=== PATIENT | female | born 1990 | race Caucasian/White ===

== ENCOUNTER 2020-03-20 11:08 | Emergency (ER) | payer MEDICAID ==
[2020-03-20] MEDS ORDERED: DIPH/PERTUSS(ACELL)/TETANUS VAC/PF 0.5 ML SYR (>=10YO) IM ONE (11:29)
[2020-03-20] MEDS ORDERED: AMOXICILLIN TR/POT CLAVULANATE 875-125 MG TAB PO ONE (11:33)
--- NOTE | 2020-03-20 11:37 | ER Document Report ---
ED Extremity Problem, Lower - General Chief Complaint: Foot Injury Stated Complaint: STEPPED ON GIL NAIL (LEFT FOOT) Time Seen by Provider: 03/20/20 11:26 Notes: CHIEF COMPLAINT: Plantar puncture wound left foot HPI: 29-year-old female presenting for plantar puncture wound left foot under the fourth and fifth toes. Stepped on a nail in a wood shed through a [employer] rubber soled shoe. This occurred yesterday. She reports numbness and tingling to the fifth toe and also redness now on the dorsal aspect of the foot. No fever. Tetanus not up-to-date. ROS: See HPI - all other systems were reviewed and are otherwise negative Constitutional: no fever Integumentary: + rash Allergy: no hives Musculoskeletal: + extremity pain or swelling Neurological: + numbness/tingling, no weakness MEDICATIONS: I agree with the patient medications as charted by the RN. ALLERGIES: I agree with the allergies as charted by the RN. PAST MEDICAL HISTORY/PAST SURGICAL HISTORY: Reviewed and agree as charted by RN. SOCIAL HISTORY: Reviewed and agree as charted by RN. FAMILY HISTORY: No significant familial comorbid conditions directly related to patient complaint EXAM: Reviewed vital signs as charted by RN. CONSTITUTIONAL: Alert and oriented and responds appropriately to questions. Well-appearing; well-nourished HEAD: Normocephalic; atraumatic EYES: Conjunctivae clear, sclerae non-icteric ENT: normal nose; no rhinorrhea; moist mucous membranes NECK: Supple without meningismus CARD: symmetric distal pulses RESP: Normal chest excursion without splinting or tachypnea ABD/GI: non-distended. BACK: The back appears normal EXT: Normal ROM in all joints; no cyanosis, no effusions, no edema. There is a puncture wound on the plantar aspect of the left foot proximal to the MTP region of the fourth and fifth toes without a palpable or visible foreign body. Dorsalis pedis and posterior tibial pulses are present in the left foot and ankle. Sensation is intact in the toes with capillary refill less than 3 seconds. Patient does report slight decreased sensation in the fifth toe distally to touch SKIN: Normal color for age and race; warm; dry; good turgor; there is an area of erythema on the dorsal aspect of the foot proximal to the MTP region of the fourth and fifth toes measuring approximately 3 cm x 3 cm without induration. NEURO: Moves all extremities equally; Motor and sensory function intact PSYCH: The patient's mood and manner are appropriate. Grooming and personal hygiene are appropriate. MDM: 29-year-old female with a plantar puncture wound now with a cellulitis on the dorsal aspect of the foot. Will obtain x-ray to evaluate for retained foreign body update tetanus status. Discussed with Dr. De La Cruz attending. We will plan to place patient on Augmentin with strict return precautions The patient was evaluated during the global COVID-19 pandemic and that diagnosis was suspected/considered upon their initial presentation. Their evaluation, treatment and testing was consistent with current guidelines for patients who present with complaints or symptoms that may be related to COVID-19 - Related Data Allergies/Adverse Reactions: latex Allergy (Verified 03/20/20 11:28) Past Medical History - Social History Smoking Status: Unknown if Ever Smoked Family History: Reviewed & Not Pertinent Physical Exam - Vital signs Vitals: Temp Pulse Resp BP Pulse Ox 98.6 F 99 16 130/87 H 97 03/20/20 11:15 03/20/20 11:15 03/20/20 11:15 03/20/20 11:15 03/20/20 11:15 Course - Re-evaluation Re-evalutation: 03/20/20 11:48 On my review of the x-ray I do not visualize a foreign body or bony injury. Will treat with Augmentin, close follow-up - Vital Signs Vital signs: Temp Pulse Resp BP Pulse Ox 98.6 F 99 16 130/87 H 97 03/20/20 11:15 03/20/20 11:15 03/20/20 11:15 03/20/20 11:15 03/20/20 11:15 - Laboratory Results Critical Laboratory Results Reviewed: No Critical Results - Radiology Results Critical Radiology Results Reviewed: No Critical Results Discharge - Discharge Clinical Impression: Cellulitis of foot, left Puncture wound of plantar aspect of foot Qualifiers: Encounter type: initial encounter Laterality: left Qualified Code(s): S91.332A - Puncture wound without foreign body, left foot, initial encounter Condition: Stable Disposition: HOME, SELF-CARE Instructions: Puncture Wound ([facility]) Additional Instructions: Take the antibiotics as prescribed. Pain medications as prescribed. Clean the area with soap and water daily. Return for increasing redness or swelling of the foot as discussed otherwise follow-up with PCP or orthopedics for reevaluation Prescriptions: Amoxicillin/Potassium Clav [Augmentin 875-125 Tablet] 1 tab PO Q12 #20 tablet Diclofenac Sodium [Voltaren 50 Mg Tablet.] 50 mg PO BID #20 tablet. Referrals: KARLA OSWALD DO [ACTIVE STAFF] - Follow up as needed
--- NOTE | 2020-03-20 11:54 | RADIOLOGY REPORT (SQ) ---
EXAM DESCRIPTION: FOOT LEFT COMPLETE IMAGES COMPLETED DATE/TIME: 03/20/2020 11:45 am REASON FOR STUDY: puncture wound STEPPED ON A NAIL COMPARISON: None. NUMBER OF VIEWS: Three views. TECHNIQUE: AP, lateral and oblique radiographic images acquired of the left foot. LIMITATIONS: None. FINDINGS: MINERALIZATION: Normal. BONES: No acute fracture or dislocation. No worrisome bone lesions. JOINTS: No effusions. SOFT TISSUES: No soft tissue swelling. No foreign body. OTHER: No other significant finding. IMPRESSION: NEGATIVE STUDY OF THE LEFT FOOT. NO RADIOGRAPHIC EVIDENCE OF ACUTE INJURY. TECHNICAL DOCUMENTATION: JOB ID: [id number] 2010 [employer]- All Rights Reserved Reading location - IP/workstation name: [email or web address]
[2020-03-20 12:02] VITALS: BP 122/89
== END 2020-03-20 12:03 | disposition home or self-care (01) ==
LOC: ER 11:08
DX: S91.332A Puncture wound without foreign body, left foot, initial encounter (principal); L03.116 Cellulitis of left lower limb; W45.0XXA Nail entering through skin, initial encounter; Y93.89 Activity, other specified; Y92.096 Garden or yard of other non-institutional residence as the place of occurrence of the external cause; R20.0 Anesthesia of skin; R20.2 Paresthesia of skin; Z23 Encounter for immunization; Z91.040 Latex allergy status; Z20.822 Contact with and (suspected) exposure to COVID-19
CPT/HCPCS: 99283; 90471; 73630; 90715; J3490